=== PATIENT | male | born 1995 | race Caucasian/White ===

== ENCOUNTER 2019-02-24 02:51 | Emergency (ER) | payer MEDICAID ==
[~2019-02-24] VITALS: Ht 160 cm; Wt 54.5 kg
[2019-02-24 02:54] VITALS: Ht 160 cm; Wt 54.5 kg
[2019-02-24 05:07] VITALS: BP 128/82; PULSE 80; RESP 16
--- NOTE | 2019-02-24 05:07 | ERD ---
ER Documentation Chief Complaint Chief Complaint LACERATION TO LT HEAD S/P TRIP AND FALL, + KO HPI This is a 23-year-old male with a laceration to successful treatment fall. He said he had loss conscious. Denies any vomiting fevers or chills. No other current complaints but denies focal neurological complaints ROS All systems reviewed and are negative except as per history of present illness. Allergies Allergies: Coded Allergies: No Known Allergy (Unverified , 02/24/19) PMhx/Soc Medical and Surgical Hx: pt denies Medical Hx, pt denies Surgical Hx Hx Alcohol Use: No Hx Substance Use: No Hx Tobacco Use: No Smoking Status: Never smoker Physical Exam Vitals Vital Signs Date Temp Pulse Resp B/P (MAP) Pulse Ox O2 O2 Flow FiO2 Time Delivery Rate 02/24/19 98.3 79 18 132/81 98 Room Air 03:01 (98) 02/24/19 98.3 99 18 130/85 98 02:54 (100) Physical Exam Const: No acute distress Head: Atraumatic Eyes: Normal Conjunctiva ENT: Normal External Ears, Nose and Mouth. Neck: Full range of motion. No meningismus. Resp: Clear to auscultation bilaterally Cardio: Regular rate and rhythm, no murmurs Abd: Soft, non tender, non distended. Normal bowel sounds Skin: No petechiae or rashes Back: No midline or flank tenderness Ext: No cyanosis, or edema Neur: Awake and alert Psych: Normal Mood and Affect Procedures/MDM Laceration Repair by me: Anesthesia: 1% lidocaine locally Location: Scalp Tendon/Joint/Nerves: No injury Foreign body: None detected after copious irrigation and exploration Technique: [place] Complexity: No subcutaneous sutures/mucosal repair/edge excision Post Closure Length: 4 cm Patient's bleeding was easily controlled in the department and there is no indication of anemia. No evidence of compartment syndrome, neurologic injury, vascular injury, open joint, tendon laceration, or foreign body. Patient is appropriate for outpatient follow up. 48 hour wound check. Scar minimization instructions given. Medical decision make: Patient's neurologic symptoms have stabilized while they have been evaluated in the department and are appropriate for outpatient work up. No e/o meningitis, intracranial bleed, seizure, stroke. Departure Diagnosis: Primary Impression: Fall Encounter type: initial encounter Qualified Codes: W19.XXXA - Unspecified fall, initial encounter Condition: Stable Patient Instructions: Laceration, Scalp ISA SIMMS Feb 24, 2019 05:07
== END 2019-02-24 05:08 | disposition home or self-care (01) ==
LOC: E/R 02:51
DX: S01.01XA Laceration without foreign body of scalp, initial encounter (principal); W01.0XXA Fall on same level from slipping, tripping and stumbling without subsequent striking against object, initial encounter; Y92.9 Unspecified place or not applicable
CPT/HCPCS: 12002; 70450; Z7502

== ENCOUNTER 2019-03-10 14:49 | Emergency (ER) | payer MEDICAID ==
[~2019-03-10] VITALS: Ht 160 cm; Wt 53.3 kg
[2019-03-10 14:55] VITALS: BP 140/85; PULSE 94; RESP 16; Ht 160 cm; Wt 53.3 kg
== END 2019-03-10 15:25 | disposition home or self-care (01) ==
LOC: E/R 14:49
DX: Z48.02 Encounter for removal of sutures (principal)
CPT/HCPCS: 99281